=== PATIENT | female | born 1995 | race Caucasian/White ===

== ENCOUNTER 2020-02-08 05:48 | Emergency (ER) | payer SELFPAY ==
--- NOTE | 2020-02-08 07:43 | RAD ---
SINGLE VIEW CHEST: Date: 02/08/2020 COMPARISON: None. HISTORY: Sore throat and syncope. FINDINGS: Single view of the chest shows a normal sized cardiomediastinal silhouette. There is no evidence of c onsolidation, mass, or pleural effusion. The bones are unremarkable. IMPRESSION: No evidence of acute cardiopulmonary disease. POS: [facility]
--- NOTE | 2020-02-10 14:59 | EKG ---
Test Reason : Blood Pressure : / mmHG Vent. Rate : 066 BPM Atrial Rate : 066 BPM P-R Int : 152 ms QRS Dur : 076 ms QT Int : 388 ms P-R-T Axes : 045 068 035 degrees QTc Int : 406 ms Normal sinus rhythm Normal ECG Confirmed by DIMAS RIZO ([id number]), editor managing newspaper MAGDA ALVAREZ ([id number]) on 02/10/2020 2:59:32 PM Referred By: INDIRA RIZO Confirmed By:DIMAS RIZO
== END 2020-02-08 06:42 | disposition home or self-care (01) ==
LOC: ERS 05:48
DX: R55 Syncope and collapse (principal); J02.0 Streptococcal pharyngitis
CPT/HCPCS: 71045; 87430; 93005